=== PATIENT | female | born 1995 | race Two or more races ===

== ENCOUNTER 2023-05-07 10:32 | Emergency (ER) | payer OTHER ==
[~2023-05-07] VITALS: Ht 165.1 cm; Wt 66.7 kg
[2023-05-07 13:00] LABS: HEMATOCRIT 44.9 % (36.0-45.00); HEMOGLOBIN 15.5 g/dL (12.0-15.00); MEAN CELL VOLUME 90.7 fL (80.00-100.00); MEAN CORPUSCULAR HEMOGLOBIN 31.4 pg (27.00-32.0); MEAN CORPUSCULAR HGB CONC 34.7 g/dl (32.0-36.0); PLATELET COUNT 278 K/uL (150-450); RED BLOOD COUNT 4.95 M/uL (4.00-6.00); RED CELL DISTRIBUTION WIDTH 12.2 % (11.5-14.5)
[2023-05-07 13:14] LABS: CALCIUM 9.1 mg/dL (8.5-10.1); CREATININE SERUM 0.88 mg/dL (0.55-1.02); GFR 76.51; POTASSIUM 4.03 mEq/L (3.5-5.1)
[2023-05-07 16:08] LABS: URINE APPEARANCE Clear; URINE BILIRRUBIN Negative (NEGATIVE); URINE BLOOD Negative; URINE COLOR Yellow; URINE GLUCOSE Negative (NEGATIVE); URINE LEUKOCYTE Small; URINE NITRATE Negative; URINE PROTEIN Negative (NEGATIVE); URINE UROBILINOGEN 0.2 E.U./dl
[2023-05-07 16:12] LABS: URINE BACTERIA 1350.4 uL (0.0-1933); URINE EPITHELIAL CELLS 12.3 uL (0.0-38.8); URINE RBC 2.7 uL (0.0-20.8); URINE WBC 55.6 uL (0.0-23.2)
== END 2023-05-07 20:19 | disposition home or self-care (01) ==
LOC: ER 10:32
PROVIDERS: General Practice
DX: K52.89 Other specified noninfective gastroenteritis and colitis (principal); B20 Human immunodeficiency virus [HIV] disease; Z88.8 Allergy status to other drugs, medicaments and biological substances; E86.0 Dehydration